=== PATIENT | female | born 1935 | race Caucasian/White ===

== ENCOUNTER 2016-10-17 10:40 | Day surgery (SDC) | payer MEDICARE, BC ==
[~2016-10-17] VITALS: Ht 152.4 cm; Wt 60.3 kg
[2016-10-17] VITALS (10 sets, daily range): BP systolic 119–170; BP diastolic 68–96; PULSE 75–88; RESP 16–18; TEMP 98–98.6; O2SAT 91–100
[2016-10-17] MEDS ORDERED: ZANT150T2 PO (11:23)
[2016-10-17] MEDS ORDERED: OMEP20TA PO (11:23)
[2016-10-17] MEDS ORDERED: DIOV80TA4 PO (11:23)
[2016-10-17] MEDS ORDERED: DILT120C9 PO (11:23)
[2016-10-17] MEDS ORDERED: ALLE10TA10 (11:23)
[2016-10-17] MEDS ORDERED: HUMALOG SQ (11:23)
[2016-10-17] MEDS ORDERED: CETI10 PO (11:23)
[2016-10-17] MEDS ORDERED: INSU100V3 SQ (11:23)
[2016-10-17] MEDS ORDERED: APIX5TAB PO (11:23)
[2016-10-17] MEDS ORDERED: ROSU10 PO (11:23)
[2016-10-17] MEDS ORDERED: POVIDONE IODINE 5% (ANTISEPSIS KIT) 4 APPLICATIONS EACH NARE PRN (11:30)
[2016-10-17] MEDS ORDERED: SODIUM CHLORID 0.9% 500 ML INJ 500 ML IV SCH (11:30)
[2016-10-17] MEDS ORDERED: INSULIN HUMAN REGULAR 1,000 UNITS/10 ML VIAL SQ PRN (11:30)
[2016-10-17] MEDS ORDERED: LORazepam 1 MG TAB SL SCH (11:30)
[2016-10-17] MEDS ORDERED: LACTATED RINGER'S 1000 ML IV PRN (11:30)
[2016-10-17] MEDS ORDERED: SODIUM CHLORID 0.9% 500 ML IV PRN (11:30)
[2016-10-17] MEDS ORDERED: METOPROLOL TARTRATE 25 MG TAB PO PRN (11:30)
[2016-10-17] MEDS ORDERED: CHLORHEXIDINE GLUCONATE 2 % 1 PACK (2 CLOTHS) TOPICAL PRN (11:30)
[2016-10-17 11:42] LABS: APTT (PATIENT) 28.6 SEC (24.3-30.1); PROTHROMBIN TIME - PATIENT 11.4 SEC (9.8-11.6)
[2016-10-17 11:49] LABS: BICARBONATE 29.8 MEQ/L (21.0-32.0); POTASSIUM 4.4 MEQ/L (3.5-5.1)
[2016-10-17] MEDS ORDERED: LEVOFLOXACIN 500 MG PREMIX INJ 100 ML IV ONE (13:00)
[2016-10-17 13:01] LABS: AUTOMATED NEUTROPHIL # 5.4 TH/MM3 (1.8-7.7); BASOPHIL # 0.1 TH/MM3 (0-0.2); BASOPHIL % 0.9 % (0.0-2.0); EOSINOPHIL # 0.2 TH/MM3 (0-0.4); EOSINOPHIL % 2.1 % (0.0-4.0); HEMATOCRIT 34.1 % (35.0-46.0); HEMO FLAGS AUTO DIFF; LYMPH % 24.9 % (9.0-44.0); MEAN CELL VOLUME 87.4 FL (80.0-100.0); MEAN CORPUSCULAR HEMOGLOBIN 29.9 PG (27.0-34.0); MEAN CORPUSCULAR HGB CONC 34.2 % (32.0-36.0); MONO % 6.4 % (0.0-8.0); NEUT % 65.7 % (16.0-70.0); PLATELET COUNT 140 TH/MM3 (150-450); RED CELL DISTRIBUTION WIDTH 13.3 % (11.6-17.2); WHITE BLOOD COUNT 8.2 TH/MM3 (4.0-11.0)
[2016-10-17 13:03] LABS: PLATELET ESTIMATE SMEAR LOW (NORMAL); PLATELET MORPHOLOGY NORMAL (NORMAL); SCAN/DIFF AUTO DIFF CONFIRMED
--- NOTE | 2016-10-17 17:04 | CATHPROC ---
[employer] HIS Report Study Information Study Number Admission Scheduled Start Study Start [id number] Oct 17 2016 10:40AM 10/17/2016 Oct 17 2016 1:02PM [place] Service Electrophysiology Study Admit Source Facility Department Other [facility] - [facility] Physician and Clinical Staff Initial Zackary Mason Territory Sales Manager Medical Osvaldo Yadav,RT(R) Territory Sales Manager Medical Vera Odonnell,RT(R) TECH2 Other Anesthesia, GAS DISTRIBUTION AND EMERGENCY CLERK Recorder Gricelda Royal,MARK Scrub Martha Bustos RCIS Procedures Performed Procedure Location (Site) Vessel Name Ablation Procedure ICE CATHETER INSERT RA Atruim RF Ablation LT. ATRIUM LT. ATRIUM Equipment Time Apparel Fashion Designer Description Size Mfg Part Number Used/Scraped NEEDLE, TRANSSEPTAL NRG 98 15:06 [facility] [id number] Used C1 [employer]/ EP 15:06 KIT, TRANSDUCER / AFIB [id number] Used PACER [id number] CATHETER, TACTICATH ABLAT BUNDLE 15:06 BUNDLE-[facility] NATHANAEL Used 65 BUNDLE *[id number]- BUNDLE [id number] CATHETER, FR7 OPTIMA SPIRAL 15:06 BUNDLE-[facility]. NATHANAEL FR7 *[id number] Used BUNDLE BUNDLE [id number] 15:06 BUNDLE-[employer]. NATHANAEL CATHETER, JSN, QUAD BUNDLE FR 5 *[id number] Used BUNDLE [id number] 15:06 BUNDLE-[employer]. NATHANAEL CATHETER, JSN, QUAD BUNDLE FR 5 *[id number]- Used BUNDLE [id number] SET, COOL POINT TUBING 15:06 BUNDLE-ST. NATHANAEL *[id number]- Used BUNDLE BUNDLE SHEATH, FR8.5 STEERABLE SM 15:06 BUNDLE-ST. NATHANAEL 71CM [id number] Used 71CM BUNDLE COVER, TRANSDUCER CABLE 15:06 [employer] 612-113 Used ACUNAV 15:06 CORDIS/PACER SHEATH, FR10 MAUREEN 11CM FR 10 [id number] Used 15:06 CORDIS/PACER SHEATH, FR9 MAUREEN 11CM FR 9 [id number] Used [id number] 15:06 [employer] INDUSTRIES PACK, CCL CUSTOM * Used *[id number] 15:06 MEDLINE PACER CISNEROS, LIMB * 0590 *[id number] Used [id number] 15:06 [employer] MEDICAL SHEATH, FR4.5 PRELUDE 11CM FR 4.5 Used [id number] 15:06 NAMIC TUBING, HIGH PRESSURE 48" 48" Used *[id number] 15:06 NAMIC TUBING, HIGH PRESSURE 48" 48" Used *[id number] 15:06 EMERY MEDICAL BLANKET,WARM AIR CCL * Used *[id number] 15:06 [facility] NATHANAEL MEDICAL ELECTRODE KIT, CLARA X SURFACE * [id number] Used 15:06 [facility] NATHANAEL MEDICAL SHEATH, EPS, FR6 FAST CATH FR 6 [id number] Used 15:06 [facility] NATHANAEL MEDICAL SHEATH, EPS, FR7 FAST CATH FR 7 [id number] Used 15:06 [facility] 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 Diabetes Diabetes Therapy Disease Labs Hgb (g/dl) Hct (%) RBC (MIL/MM3) WBC (l/cumm) Platelets (thousands) 11.60-17.00 35.00-51.00 4.00-5.90 4.00-11.00 150.00-450.00 11.7 34.1 3.9 8.2 140 Glucose (mg/dl) BUN (mg/dl) Creatinine (mg/dl) BUN:Creatinine (1:x) 74.00-106.00 7.00-18.00 0.50-1.30 10.00-20.00 138 29 1.0 29 Na (meq/l) K (meq/l) 136.00-145.00 3.50-5.10 144 4.4 INR (PTT:PT) 0.90-1.10 1 CPK-MB (ng/ML) 0.50-3.60 Not Drawn Medication Medication Total Dose (Bolus/Oral) Medication Total Dosage/Unit 1% XYLOCAINE 40 mL HEPARIN 19925 units LASIX 20 mg PROTAMINE 40 mg Medications (Bolus/Oral) Medication Time Given Dosage/Unit Administered By Reason 1% XYLOCAINE 10/17/2016 3:30:00 PM 20 mL FernieZackary 20 mL 1% XYLOCAINE given in lab by Zackary Enciso in Left Groin via Subcutaneous. Ordered by Michael Enciso 1% XYLOCAINE 10/17/2016 3:33:45 PM 20 mL Zackary Enciso 20 mL 1% XYLOCAINE given in lab by Zackary Enciso in Right Groin via Subcutaneous. Ordered by Bayron Enciso. HEPARIN 10/17/2016 3:42:52 PM 8000 units Anesthesia, GAS DISTRIBUTION AND EMERGENCY CLERK 8000 units HEPARIN given in lab by Anesthesia, GAS DISTRIBUTION AND EMERGENCY CLERK via Peripheral IV. Ordered by Zackary Enciso. HEPARIN 10/17/2016 3:56:35 PM 2000 units Anesthesia, GAS DISTRIBUTION AND EMERGENCY CLERK 2000 units HEPARIN given in lab by Anesthesia, GAS DISTRIBUTION AND EMERGENCY CLERK via Peripheral IV. Ordered by Zackary Enciso. HEPARIN 10/17/2016 4:11:56 PM 1000 units Anesthesia, GAS DISTRIBUTION AND EMERGENCY CLERK 1000 units HEPARIN given by Anesthesia, GAS DISTRIBUTION AND EMERGENCY CLERK via Peripheral IV. Ordered by Zackary Enciso. LASIX 10/17/2016 4:50:10 PM 20 mg Anesthesia, GAS DISTRIBUTION AND EMERGENCY CLERK 20 mg LASIX given in lab by Anesthesia, GAS DISTRIBUTION AND EMERGENCY CLERK via Peripheral IV. Ordered by Zackary Enciso. PROTAMINE 10/17/2016 4:51:01 PM 40 mg Anesthesia, GAS DISTRIBUTION AND EMERGENCY CLERK 40 mg PROTAMINE given in lab by Anesthesia, GAS DISTRIBUTION AND EMERGENCY CLERK. Ordered by Zackary Enciso. Medication (Drip) Medication Time Given Dosage/Unit Concentration/Unit Diluent (ml) Solution ISUPREL 10/17/2016 4:35:25 PM 20 mcg/min 1 mg 250 NaCl .9 20 mcg/min ISUPREL given in lab by Anesthesia, GAS DISTRIBUTION AND EMERGENCY CLERK via Peripheral IV. Pump/Drip Flow = 300 ml/hr usi ng NaCl .9 with a concentration of 1 mg in 250 ml. Ordered by Zackary Enciso. Initial Case Assessment Cardiovascular HR Rhythm NIBP Chest Pain 94 regular 206/92 0 Edema Present Skin color Skin None Normal Warm Dry Circulatory - Right Pulses Dorsalis Pedis Posterior Tibial Femoral 1 1 1 Scale (0,1,2,3,4,d) Circulatory - Left Pulses Dorsalis Pedis Posterior Tibial Femoral 1 1 1 Scale (0,1,2,3,4,d) Circulatory - Lower Extremities Color Lower Right Color Lower Left Normal Normal Neurological State Oriented to time-place- Alert Moves all extremities person Respiration - General Respiration Rate SpO2 (%) (B/min) 12 100 Final Case Assessment Cardiovascular HR Rhythm NIBP Chest Pain 95 regular 157/61 0 Edema Present Skin color Skin None Normal Warm Dry Circulatory - Right Pulses Dorsalis Pedis Posterior Tibial Femoral 1 1 1 Scale (0,1,2,3,4,d) Circulatory - Left Pulses Dorsalis Pedis Posterior Tibial Femoral 1 1 1 Scale (0,1,2,3,4,d) Circulatory - Lower Extremities Color Lower Right Color Lower Left Normal Normal Neurological State Oriented to time-place- Alert Moves all extremities person Respiration - General Respiration Rate SpO2 (%) O2 (lpm) (B/min) 12 99 4 Chronological Log Time Study Chronological Log 14:47:00 Patient arrived via Bed. 14:47:01 Patient Name, D.O.B, / Armband Verified By R.N. 14:47:02 Consent signed by the physician and the patient and verified by the [facility] staff. 14:47:03 Pre-op and post- op instructions given; patient acknowledges understanding of instructions. 14:47:04 Verbal Stimulation=2 Physical Stimulation=2 Airway=2 Respiration=2 TOTAL=8. (0=absent, 1=li mited, 2=present) 14:48:05 Pt received 500mg Levaquin in DOCU at [address] Enciso for luo insertion. 14:49:00 Anesthesia at bedside. LUKE Lizama assumes care of patient. 14:50:00 Patient has been NPO for More than 6Hrs. 14:51:00 Skin Breakdown-small scabbed area on pt's left calf 14:52:00 Patient Warmer Placed on the Table. 14:53:00 Disposable Defibrillator Pads Placed On Patient. 14:54:00 Corrine Prominences Protected 14:57:56 A # 20 IV was noted in the Antecubital (left). Grade = 0 0.9NS infusing at KVO 14:58:13 A # 20 IV was noted in the Antecubital (right). Grade = 0 0.9NS infusing at KVO 14:59:00 History and physical on the chart or being dictated. Assessment: Initial Case, HR=94 BPM, Rhythm=regular, ZRYC=726/92 mmhg, Chest Pain=0, Edema=None , Color=Normal, Skin = Warm, Dry Right Pulses: Angus Ped=1, Post Tib=1, Femoral=1 Left Pulses: Angus Ped=1, Post Tib=1, Femoral=1 14:59:10 Lower Right Extremities: Color=Normal Lower Left Extremities: Color=Normal Neurological: State=Alert, Ox3, MATHUR Respiration: Resp=12 B/min, PsU9=270 % 14:59:20 Table restraints applied according to hospital policy 15:05:44 paged, ready for YAMILETH 15:05:54 Bilateral groins prepped with 2% chlorhexidine, and with a 3 min. waiting time. 15:14:32 Reference ECG taken 15::42 MD arrived. Time Out. Correct patient, procedure, procedure equipment, site and side verified with physicia n present. Time 15:26:12 concurred by MD, individual staff and GAS DISTRIBUTION AND EMERGENCY CLERK. Time Out #2 - Consents verified, patient in correct position, all results are labled and displa yed, safety precautions 15:26:20 taken, antibiotics administered. Time out concurred by MD, individual staff and GAS DISTRIBUTION AND EMERGENCY CLERK in procedu re 15::44 Case Start 15:27:00 YAMILETH in progress 15:28:00 YAMILETH complete 15:30:00 20 mL 1% XYLOCAINE given in lab by Zackary Enciso in Left Groin via Subcutaneous. Ordered by Zackary Enciso. 15:31:48 Vascular access was obtained in the Fem Vein (left). 15:32:05 Vascular access was obtained in the Fem Vein (left). 15:32:06 Vascular access was obtained in the Fem Vein (left). 15:32:10 Vascular access was obtained in the Fem Art (left). 15:32:22 A SHEATH, EPS, FR6 FAST CATH FR 6 was advanced into the Fem Vein (left) using the Modified Seldinger technique. 15:32:33 A SHEATH, EPS, FR7 FAST CATH FR 7 was advanced into the Fem Vein (left) using the Modified Seldinger technique. 15:32:37 A SHEATH, FR10 MAUREEN 11CM FR 10 was advanced into the Fem Vein (left) using the Modified S eldinger technique. 15:32:42 A SHEATH, FR4.5 PRELUDE 11CM FR 4.5 was advanced into the Fem Art (left) using the Modified Seldinger technique. 15:33:45 20 mL 1% XYLOCAINE given in lab by Zackary Enciso in Right Groin via Subcutaneous. Ordered b Eduin Fieldscy. 15:34:14 Vascular access was obtained in the Fem Vein (right). 15:34:17 A SHEATH, EPS, FR8 FAST CATH FR 8 was advanced into the Fem Vein (right) using the Modified Seldinger technique. A CATHETER, JSN, QUAD BUNDLE FR 5 was advanced vis Fem Vein (left) and placed in the CS. Placem ent was visually 15:36:24 confirmed under fluoroscopy. A CATHETER, JSN, QUAD BUNDLE FR 5 was advanced vis Fem Vein (left) and placed in the HIS. Place ment was 15:36:46 visually confirmed under fluoroscopy. 15:40:28 CATHETER, ACUNAV FR10 ICE (Gyst) FR 10 Was Postioned. A SHEATH, FR8.5 STEERABLE SM 71CM BUNDLE 71CM was exchanged in the Fem Vein (right). This was n ecessary in 15:42:14 order for catheter support. 15:42:52 8000 units HEPARIN given in lab by Anesthesia, GAS DISTRIBUTION AND EMERGENCY CLERK via Peripheral IV. Ordered by Michael Enciso. 15:44:04 Davion needle inserted in 8fr steerable sheath 15:47:15 Transseptal 15:47:20 Davion needle removed 15:47:35 Activated Clotting Time Drawn A CATHETER, FR7 OPTIMA SPIRAL BUNDLE FR7 was advanced vis Fem Vein (right) and placed in the LA . Placement 15:48:00 was visually confirmed under fluoroscopy. 15:48:05 mapping in progress 15:55:38 mapping complete, [place] Spiral catheter removed 15:56:00 ACT (Normal Range 90-180) = 325 15:56:35 2000 units HEPARIN given in lab by Anesthesia, GAS DISTRIBUTION AND EMERGENCY CLERK via Peripheral IV. Ordered by Michael Enciso. 16:02:48 Activated Clotting Time Drawn A CATHETER, TACTICATH ABLAT 65 BUNDLE was advanced vis Fem Vein (right) and placed in the LA. P lacement was 16:06:20 visually confirmed under fluoroscopy. 16:06:25 RF Ablation of the LT. ATRIUM with a CATHETER, TACTICATH ABLAT 65 BUNDLE. 16:10:43 ACT (Normal Range 90-180) = 343 16:11:56 1000 units HEPARIN given by Anesthesia, GAS DISTRIBUTION AND EMERGENCY CLERK via Peripheral IV. Ordered by Zackary Enciso. 16:17:02 Activated Clotting Time Drawn 16:24:29 ACT (Normal Range 90-180) = 386 16:26:21 Ablation compete. Ablation catheter removed A CATHETER, FR7 OPTIMA SPIRAL BUNDLE FR7 was advanced vis Fem Vein (right) and placed in the LA . Placement 16::30 was visually confirmed under fluoroscopy. 16::35 mapping in progress 16::00 EP study in progress 16:32:25 EP study complete 16:32:26 Mapping complete, spiral catheter removed 20 mcg/min ISUPREL given in lab by Anesthesia, GAS DISTRIBUTION AND EMERGENCY CLERK via Peripheral IV. Pump/Drip Flow = 300 ml/ hr using NaCl .9 16:35:25 with a concentration of 1 mg in 250 ml. Ordered by Zackary Enciso. 16:43:15 PACU called. Spoke to [place]. 16:43:24 Bedside Report will be given. 16:44:24 Isuprel gtt discontinued A SHEATH, FR9 MAUREEN 11CM FR 9 was exchanged in the Fem Vein (right). This was necessary in ord er to achieve 16:45:57 vascular hemostasis. 16:46:51 Catheter(s) removed without difficulty 16:48:48 Case End 16:49:52 Sheath(s) sutured and left in place, will be removed in Holding Area 16:50:10 20 mg LASIX given in lab by Anesthesia, GAS DISTRIBUTION AND EMERGENCY CLERK via Peripheral IV. Ordered by Zackary Enciso. 16:50:26 No case complications noted. 16:50:27 Cine recording checked. Assessment: Final Case, HR=95 BPM, Rhythm=regular, WAST=295/61 mmhg, Chest Pain=0, Edema=None, Color=Normal, Skin = Warm, Dry Right Pulses: Angus Ped=1, Post Tib=1, Femoral=1 Left Pulses: Angus Ped=1, Post Tib=1, Femoral=1 16:50:35 Lower Right Extremities: Color=Normal Lower Left Extremities: Color=Normal Neurological: State=Alert, Ox3, MATHUR Respiration: Resp=12 B/min, SpO2=99 %, O2=4 lpm 16:51:01 40 mg PROTAMINE given in lab by Anesthesia, GAS DISTRIBUTION AND EMERGENCY CLERK. Ordered by Zackary Enciso. 16:53:25 Ablation procedure performed: AFIB. 16:53:31 EP Procedure was performed. 16:54:04 Sterile dressing applied to bilateral groin sites 16:57:47 Activated Clotting Time Drawn 17:00:00 ACT (Normal Range 90-180) = 163 17:03:27 Defibrillator and ground pads removed. Skin intact. 17:03:29 Verbal Stimulation=2 Physical Stimulation=2 Airway=2 Respiration=2 TOTAL=8. (0=absent, 1=l imited, 2=present) 17:10:00 Patient moved to stretcher End Study - Contrast Media Used In Study Contrast Total Opened (mL) Total Used (mL) Total Wasted (mL) Unspecified 0 0 0 End Study - Maximum Contrast Load Max Contrast Load (mL) 303.0 End Study - Radiation Exposure Fluoro Time (minutes) 5.5 End Study - Patient Disposition Complications Transferred To Interventional Outcome No Telemetry Bed successful
[2016-10-17] MEDS ORDERED: DO NOT ADM ANY ANTICOAGULANT DRUGS PRN (18:30)
[2016-10-17] MEDS ORDERED: ONDANSETRON HCL 4 MG/2 ML VIAL IV PRN (19:30)
[2016-10-17] MEDS: LORazepam 2 MG/ML VIAL IV PRN (19:30)
[2016-10-17] MEDS ORDERED: LIDOCAINE HCL 1% 50 ML VIAL INFIL PRN (19:30)
[2016-10-17] MEDS ORDERED: oxyCODONE/ACETAMINOPHEN 5 MG/325 MG TAB PO PRN ×2 (19:30)
[2016-10-17] MEDS ORDERED: BACITRACIN OINT 0.9 GM PKT TOP ONE (19:30)
[2016-10-17] MEDS ORDERED: METOCLOPRAMIDE HCL 10 MG/2 ML VIAL IV PRN (19:30)
[2016-10-17] MEDS ORDERED: ATROPINE SULFATE 1 MG/ML VIAL IV PRN (19:30)
[2016-10-17] MEDS ORDERED: SODIUM CHLOR 0.9% 250 ML INJ 250 ML IV PRN (19:30)
[2016-10-17] MEDS: LOW DOSE INSULIN NOVOLOG SUPPLEMENTAL SCALE SQ SCH (21:00)
[2016-10-17] MEDS ORDERED: INSULIN HUMAN NPH 1,000 UNITS/10 ML VIAL SQ SCH (21:00)
[2016-10-17] MEDS: VALSARTAN 80 MG TAB PO SCH (21:00)
[2016-10-17] MEDS ORDERED: NON-FORMULARY DRUG (Insulin Lispro (Human) Inj (Humalog Inj) 0 UNITS) SQ SCH (21:00)
[2016-10-17] MEDS ORDERED: DILTIAZEM-CD 240 MG CAP ER PO SCH (21:00)
[2016-10-17] MEDS ORDERED: PLEASE DISCONTINUE PREVIOUS SUPPLEMENTAL SCALE INSULIN ORDERS ONE (21:15)
[2016-10-17] MEDS ORDERED: DILTIAZEM-CD 240 MG CAP ER PO ONE (21:15)
[2016-10-17] MEDS ORDERED: DEXTROSE 50% IN WATER 50 ML VIAL(D50) IV PUSH PRN (21:15)
[2016-10-17] MEDS ORDERED: ATORVASTATIN 20 MG TAB PO ONE (21:15)
[2016-10-17] MEDS ORDERED: CETIRIZINE HCL 10 MG TAB PO ONE (21:15)
[2016-10-17] MEDS ORDERED: GLUCAGON 1 MG/ML VIAL OTHER PRN (21:15)
[2016-10-17] MEDS ORDERED: PANTOPRAZOLE SOD 20 MG DELAYED RELEASE TAB PO ONE (21:15)
[2016-10-17] MEDS: FAMOTIDINE 20 MG TAB PO SCH (21:17)
[2016-10-17] MEDS: APIXABAN 5 MG TABLET PO SCH (21:17)
--- NOTE | 2016-10-17 22:45 | PD.CARD ---
Atrial Fibrillation Ablation PROCEDURE DATE: Oct 17, 2016 PROCEDURES PERFORMED: 1. Electrophysiology study on Isuprel infusion 2. CS cannulation 3. 3-D mapping 4. Transseptal approach 5. Right and left heart catheterization 6. Intracardiac echo 7. Radiofrequency ablation of atrial fibrillation 8. Pulmonary vein isolation 9. Posterior wall ablation 10. Mitral line creation 11. Anterior wall ablation 12. Repeat electrophysiology post isuprel INDICATIONS FOR THE PROCEDURE Ms. Jolly is a 81-year-old female with atrial fibrillation, very symptomatic, on anticoagulation referred for electrophysiology study and ablation. The risks, the nature and the benefits of the procedure were clearly stated to her. The risks include pneumothorax, cardiac perforation, stroke, need for open heart surgery and even . The patient understood and agreed to proceed. DESCRIPTION OF THE PROCEDURE IN DETAIL After written informed consent was obtained prior to esophageal echocardiogram, the patient was kept on the table where she was prepped and draped in the usual sterile fashion. Conscious sedation was initiated and maintained throughout the procedure by the anesthesiologist. Once sedation was verified, the right and left inguinal areas were anesthetized with 2% Xylocaine. Using modified Seldinger technique, the left femoral vein was cannulated on three occasions, three guidewires were advanced. Over the wire a 6, 7 and a 10-Slovak Hemaquet were advanced. Then the left femoral artery was cannulated on one occasion, one guidewire was advanced. Over the wire a 4-Slovak Hemaquet was advanced. Then the right femoral vein was cannulated on one occasion, one guidewire was advanced. Over the wire a 8-Slovak Hemaquet was advanced. Then under fluoroscopic guidance through the 6 and 7-Slovak Hemaquet, two 5-Slovak Mayra curved quadripolar electrophysiology catheters were advanced and placed around the His as well as coronary sinus. Basic interval was measured. The patient was in atrial fibrillation. Through the 10-Slovak Hemaquet, a Cordis Parsons AcuNav intracardiac echo catheter was advanced and placed at the right atrium. Multiple view was obtained. There is pericardial effusion, pulmonary vein was seen, atrial septal was visualized. Then the 8-Slovak Hemaquet in the right femoral vein was exchanged for Agilis transseptal sheath that was placed all the way to the superior vena cava. Through the sheath a Jermain needle was advanced, then the sheath, the dilator and the needle were progressed until foci engaged. Once engaged, the needle was advanced. RF was delivered for 2 seconds. I was able to cross into the left atrium. Once the needle crossed, the dilator was advanced. Once the dilator crossed, the sheath was advanced. Once the sheath crossed, the dilator and the needle were removed. At this point I did flood the system and fluid movement was seen in the left atrium the indicates the sheath is in good position. The patient already received 8,000 units of heparin. The goal is to keep an ACT around 350 during ablation. Then through the sheath a [facility] [employer] 20 pulse circumferential catheter was advanced. Using Mantara endocardial solution mapping system, a two- dimensional configuration of the left atrium was obtained. Points were taken at the left superior and inferior veins, right superior and inferior veins, mitral valve, and appendages. Then through the sheath a [facility]. Stanford TactiCath 65cm 3.5mm irrigated tipped mapping and radiofrequency ablation catheter was advanced. Esophageal probe was placed temperature monitoring during ablation. When it increased to 0.5 degrees Celsius above baseline, I moved to a different area of the atrium. First I did isolate the left superior and inferior vein. I did make a [place] around the veins. Posterior was ablated. Then a mitral line was created. Then the right superior and inferior veins were isolated. I did remap the atrium. There is no significant signal in the atrium. At this point I decided to proceed with cardioversion. At that point I did advance the circumferential catheter again into the vein. There was no signal into the vein, pacing from the vein showed no conduction to the atrium. Isuprel infusion was initiated at 20 mcg for over 10 minutes. No tachyarrhythmia was induced, post Isuprel no tachyarrhythmia was induced. At that point the procedure was complete. All catheters were removed, atrial septal sheath was exchanged for 9-Slovak Hemaquet , intracardiac echo showed no pericardial effusion. There is still good flow in the pulmonary vein. The patient is going to be transferred to the recovery room. No incident report. The patient tolerated the procedure. Blood loss was minimal. FINDINGS 1. Electrocardiogram: At baseline the patient was in sinus post procedure electrocardiogram was unchanged. 2. Basic interval: Base cycle length was around 840ms. AH at 130 and HV at 58 milliseconds. 3. Tachyarrhythmia: Atrial fibrillation was mapped and ablated. The ablation was successful. CONCLUSION Successful electrophysiology study, mapping, radiofrequency ablation of atrial fibrillation, pulmonary vein isolation, posterior ablation, mitral line creation, repeat electrophysiology on isuprel infusion COMMENTS AND RECOMMENDATIONS The patient is going to be transferred to the telemetry unit. Will be observed and when stable can be discharged home. Zackary Enciso MD Oct 17, 2016 22:45
[2016-10-18] VITALS (10 sets, daily range): BP systolic 121–140; BP diastolic 56–73; PULSE 59–81; RESP 14; TEMP 98.1–98.2; O2SAT 95–99
[2016-10-18] MEDS: LORazepam 2 MG/ML VIAL IV PRN (00:57)
[2016-10-18] MEDS: LOW DOSE INSULIN NOVOLOG SUPPLEMENTAL SCALE SQ SCH (06:05)
[2016-10-18 07:01] LABS: APTT (PATIENT) 27.1 SEC (24.3-30.1); INTERNATIONAL NORMALIZED RATIO 1.1 RATIO
[2016-10-18] MEDS: FAMOTIDINE 20 MG TAB PO SCH (08:54)
[2016-10-18] MEDS: VALSARTAN 80 MG TAB PO SCH (08:54)
--- NOTE | 2016-10-18 08:54 | PD.CARD.PN ---
Subjective Subjective Remarks Feels okay. Objective Medications Current Medications Medications (Trade) Dose Ordered Sig/Tong Route Start Time Stop Time Status Last Admin Sodium Chloride 500 ml @ 30 mls/hr [id number] IV 10/17/16 11:30 Lactated Ringer's 1,000 ml @ 30 mls/hr Q24H PRN IV 10/17/16 11:30 10/20/16 11:29 (NS 500 ml Inj) 500 ml @ 30 mls/hr [id number] PRN IV 10/17/16 11:30 10/20/16 11:29 Miscellaneous Information ALL NURSING DEPARTME... UNSCH PRN .XX 10/17/16 18:30 10/18/16 18:29 (Percocet 5-325 Mg) 1 tab Q4H PRN PO 10/17/16 19:30 (Percocet 5-325 Mg) 2 tab Q4H PRN PO 10/17/16 19:30 (Ativan Inj) 0.5 mg UNSCH PRN IV 10/17/16 19:30 10/18/16 19:29 10/18/16 00:57 Atropine Sulfate 0.5 mg 0.5 mg UNSCH PRN IV 10/17/16 19:30 (NS 250 ml Inj) 250 ml @ 500 mls/hr ONCE PRN IV 10/17/16 19:30 10/18/16 19:29 (Reglan Inj) 5 mg Q4H PRN IV 10/17/16 19:30 (Zofran Inj) 4 mg Q4H PRN IV 10/17/16 19:30 (Xylocaine 1% Inj (50 ml)) 10 ml UNSCH PRN INFIL 10/17/16 19:30 10/18/16 19:29 (Eliquis) 5 mg BID PO 10/17/16 21:00 10/17/16 21:17 (ZyrTEC) 10 mg DAILY PO 10/18/16 09:00 (NovoLIN N INJ) 30 units HS SQ 10/17/16 21:00 (Diovan) 80 mg BID PO 10/17/16 21:00 (Cardizem Cd) 240 mg HS PO 10/17/16 21:00 10/17/16 21:16 (Protonix) 20 mg DAILY PO 10/18/16 09:00 (Pepcid) 20 mg BID PO 10/17/16 21:00 10/17/16 21:17 (Lipitor) 20 mg DAILY PO 10/18/16 09:00 (D50w (Vial) Inj) 25 ml UNSCH PRN IV PUSH 10/17/16 21:15 (Glucagon Inj) 1 mg UNSCH PRN OTHER 10/17/16 21:15 Vital Signs / I&O Vital Signs Date Time Temp Pulse Resp B/P Pulse Ox O2 Delivery O2 Flow Rate FiO2 10/18/16 06:00 64 10/18/16 05:00 62 10/18/16 04:00 64 10/18/16 04:00 66 140/64 97 10/18/16 03:00 66 10/18/16 03:00 68 125/72 99 10/18/16 03:00 98.2 66 14 130/65 97 10/18/16 02:00 71 130/73 95 10/18/16 02:00 72 10/18/16 01:00 78 10/18/16 01:00 78 135/73 98 10/18/16 00:30 81 98 10/18/16 00:00 79 132/71 95 10/18/16 00:00 77 10/17/16 23:30 79 97 10/17/16 23:00 80 10/17/16 23:00 98.5 81 18 132/71 97 10/17/16 23:00 81 97 10/17/16 22:45 75 97 10/17/16 22:30 84 91 10/17/16 22:15 85 99 10/17/16 22:00 88 10/17/16 21:00 85 10/17/16 20:00 82 10/17/16 19:40 82 16 167/75 100 Nasal Cannula 2 10/17/16 19:30 82 16 177/79 100 Nasal Cannula 2 10/17/16 19:15 84 16 160/73 100 Nasal Cannula 2 10/17/16 19:00 83 16 163/60 100 Nasal Cannula 2 10/17/16 19:00 98.6 86 18 119/96 98 10/17/16 18:45 86 16 177/75 100 Nasal Cannula 2 10/17/16 18:30 73 16 158/65 100 Nasal Cannula 2 10/17/16 18:15 75 16 166/72 100 Nasal Cannula 2 10/17/16 18:00 75 16 145/67 100 Nasal Cannula 2 10/17/16 17:45 75 16 146/70 98 Nasal Cannula 2 10/17/16 17:30 78 16 124/60 100 Nasal Cannula 2 10/17/16 17:20 97.4 84 16 130/59 99 Nasal Cannula 2 10/17/16 11:17 98.0 75 16 170/68 100 I/O 10/17/16 10/17/16 10/17/16 10/18/16 10/18/16 10/18/16 07:00 15:00 23:00 07:00 15:00 23:00 Intake Total 1600 ml 240 ml Output Total 1925 ml 400 ml Balance -325 ml -160 ml Intake Oral 240 ml IV Total 400 ml Other 1200 ml Output Urine Total 1925 ml 400 ml Estimated Blood Loss 0 ml Physical Exam GENERAL: Well-nourished, well-developed patient. SKIN: Warm and dry. Groin sites soft with no bruising or bleeding. HEAD: Normocephalic. EYES: No scleral icterus. No injection or drainage. NECK: Supple, trachea midline. No JVD or lymphadenopathy. CARDIOVASCULAR: Regular rate and rhythm without murmurs, gallops, or rubs. RESPIRATORY: Breath sounds equal bilaterally. No accessory muscle use. GASTROINTESTINAL: Abdomen soft, non-tender, nondistended. EXTREMITIES: No cyanosis, or edema. NEUROLOGICAL: Awake, alert, and oriented x 3. Non-focal. Laboratory Laboratory Tests Test 10/17/16 10/17/16 10/18/16 11:00 12:00 06:01 Prothrombin Time 11.4 SEC 12.0 SEC Prothromb Time International 1.0 RATIO 1.1 RATIO Ratio Activated Partial 28.6 SEC 27.1 SEC Thromboplast Time Sodium Level 144 MEQ/L Potassium Level 4.4 MEQ/L Chloride Level 108 MEQ/L Carbon Dioxide Level 29.8 MEQ/L Anion Gap 6 MEQ/L Blood Urea Nitrogen 29 MG/DL Creatinine 1.01 MG/DL Estimat Glomerular Filtration 53 ML/MIN Rate Random Glucose 138 MG/DL Calcium Level 9.5 MG/DL Blood Type A POSITIVE Antibody Screen NEGATIVE White Blood Count 8.2 TH/MM3 Red Blood Count 3.90 MIL/MM3 Hemoglobin 11.7 GM/DL Hematocrit 34.1 % Mean Corpuscular Volume 87.4 FL Mean Corpuscular Hemoglobin 29.9 PG Mean Corpuscular Hemoglobin 34.2 % Concent Red Cell Distribution Width 13.3 % Platelet Count 140 TH/MM3 Mean Platelet Volume 8.7 FL Neutrophils (%) (Auto) 65.7 % Lymphocytes (%) (Auto) 24.9 % Monocytes (%) (Auto) 6.4 % Eosinophils (%) (Auto) 2.1 % Basophils (%) (Auto) 0.9 % Neutrophils # (Auto) 5.4 TH/MM3 Lymphocytes # (Auto) 2.0 TH/MM3 Monocytes # (Auto) 0.5 TH/MM3 Eosinophils # (Auto) 0.2 TH/MM3 Basophils # (Auto) 0.1 TH/MM3 CBC Comment AUTO DIFF Differential Comment AUTO DIFF CONFIRMED Platelet Estimate LOW Platelet Morphology Comment NORMAL Assessment and Plan Problem List: (1) Atrial fibrillation Assessment and Plan: Normal sinus rhythm status post ablation. (2) S/P ablation of atrial fibrillation Assessment and Plan: Groin sites stable. Continue Eliquis. Follow-up with Dr. Enciso in 3 weeks. Discharge home per my discussion with Dr. Enciso. Problem Qualifiers (1) Atrial fibrillation: Qualified Code: I48.2 - Chronic atrial fibrillation Nelida Qureshi Oct 18, 2016 08:54
[2016-10-18] MEDS: APIXABAN 5 MG TABLET PO SCH (08:55)
[2016-10-18] MEDS ORDERED: PANTOPRAZOLE SOD 20 MG DELAYED RELEASE TAB PO SCH (09:00)
[2016-10-18] MEDS ORDERED: CETIRIZINE HCL 10 MG TAB PO SCH (09:00)
[2016-10-18] MEDS ORDERED: ATORVASTATIN 20 MG TAB PO SCH (09:00)
--- NOTE | 2016-10-18 22:38 | ECHRPT ---
Indication: Persistent atrial fibrillation CONCLUSIONS Mild to moderate lest atrial enlargement No clot seen in left atrium, nor left atrial apendage. Adequate left ventricular systoloic function. Ejection fraction around 60% BP: / HR: Rhythm: Technical Quality: Medications Complications Proc. Components FINDINGS LEFT VENTRICLE Adequate left ventricular wall contractility No chamber enlargement RIGHT VENTRICLE No enlargement LEFT ATRIUM Mild to moderate enlargement No clot seen No clot seen at left atrial appendage RIGHT ATRIUM The right atrial size is normal. ATRIAL APPENDAGES No clot seen adequate flow ATRIAL SEPTUM Normal atrial septal thickness without atrial level shunting by limited color doppler interrogation. AORTA Trileaflet Sclerotic and calcified with adequate opening MITRAL VALVE Trivial to mild regurgitation AORTIC VALVE Trilefleats Sclerotic and calcified with adequate opening TRICUSPID VALVE No significant regurgitation VESSELS The inferior vena cava is normal in size. PULMONARY VALVE The pulmonary valve is not well visualized. PERICADIUM No effusion Zackary Enciso MD (Electronically Signed) Final Date:18 October 2016 22:36
--- NOTE | 2016-10-18 23:02 | EKG ---
Date Performed: 10/18/2016 Time Performed: 06:21:50 PTAGE: 81 years EKG: Atrial fibrillation Inferior and anterior T wave changes are nonspecific Abnormal ECG NO PREVIOUS TRACING DOCTOR: Elena Bell Interpretating Date/Time 10/18/2016 22:59:51
--- NOTE | 2016-10-18 23:55 | EKG ---
Date Performed: 10/17/2016 Time Performed: 11:33:38 PTAGE: 81 years EKG: Sinus bradycardia with 1st degree A-V block. Abnormal ECG NO PREVIOUS TRACING DOCTOR: Elena Bell Interpretating Date/Time 10/18/2016 23:54:06
== END 2016-10-18 10:14 | disposition home or self-care (01) ==
LOC: HDOC 10:40 → HDIC 10:41 → HCIS 19:43 → HDOC 10-18 10:14
PROVIDERS: ATTEND Internal Medicine Interventional Cardiology
DX: I48.91 Unspecified atrial fibrillation (principal); I31.3 Pericardial effusion (noninflammatory); I44.0 Atrioventricular block, first degree; I49.3 Ventricular premature depolarization; R00.1 Bradycardia, unspecified; I13.10 Hypertensive heart and chronic kidney disease without heart failure, with stage 1 through stage 4 chronic kidney disease, or unspecified chronic kidney disease; E11.22 Type 2 diabetes mellitus with diabetic chronic kidney disease; N18.3 Chronic kidney disease, stage 3 (moderate); D64.9 Anemia, unspecified; I73.9 Peripheral vascular disease, unspecified; I45.10 Unspecified right bundle-branch block; E78.5 Hyperlipidemia, unspecified; E78.1 Pure hyperglyceridemia; D69.6 Thrombocytopenia, unspecified; K21.9 Gastro-esophageal reflux disease without esophagitis; Z01.810 Encounter for preprocedural cardiovascular examination; Z79.4 Long term (current) use of insulin; Z01.818 Encounter for other preprocedural examination
CPT/HCPCS: 00537; 80048; 82948; 85002; 85025; 85610; 85730; 86850; 86900; 86901; 93005; 93312; 93320; 93325; 93613; 93623; 93656; 93662; C1730; C1731; C1732; C1759; C1766; C2630; J1815; J1956; J2060; J3010